=== PATIENT | female | born 1985 | race Two or more races ===

== ENCOUNTER 2017-08-10 14:27 | Emergency (ER) | payer MEDICAID ==
--- NOTE | 2017-08-10 15:03 | EDPHY ---
H & P Time Seen by Provider: 08/10/17 14:58 HPI/ROS: Chief complaint. Sore throat, cough HPI. 32-year-old female sore throat, fever, cough, body aches for 1 day. Exposed to sick contacts. Cough is nonproductive. Not short of breath. History of pneumonia. No abdominal pain or vomiting or diarrhea. No rash. ROS Constitutional. Fever Eyes. no problems with vision ENT. Sore throat Cardiovascular. no chest pain Respiratory. Cough Abdominal. no abdominal pain, no nausea/vomiting, no diarrhea . no problems urinating MS. Body aches Skin. no rash Lymph. no swollen glands Neuro. no headache, no dizziness, no difficulty walking or with speech Past Medical/Surgical History: Appendectomy, cholecystectomy, schizoaffective disorder, PTSD Social History: Single, daily smoker, no alcohol Smoking Status: Current every day smoker Physical Exam: General Appearance: Alert well-developed female mild distress vital signs significant for heart rate of 117 and temp 37.1 degrees Eyes: Pupils equal and round no pallor or injection. ENT, tympanic membranes are normal. Pharynx injected with exudate. No evidence of peritonsillar abscess Respiratory: No retractions. Mild inspiratory expiratory rhonchi Cardiovascular: Regular rate and rhythm. Gastrointestinal: Abdomen is soft and nontender, no masses, bowel sounds normal. Neurological: Awake and alert, sensory and motor exams grossly normal. Skin: Warm and dry, no rashes. Musculoskeletal: Neck is supple nontender. Extremities symmetrical, full range of motion. Psychiatric: Patient is oriented X 3, there is no agitation. Constitutional: Initial Vital Signs Temperature (C) 37.1 C 08/10/17 14:35 Heart Rate 117 H 08/10/17 14:35 Respiratory Rate 20 08/10/17 14:35 Blood Pressure 123/68 H 08/10/17 14:35 O2 Sat (%) 93 08/10/17 14:35 O2 Delivery Mode Room Air Allergies/Adverse Reactions: hydromorphone [From Dilaudid] Allergy (Verified 08/10/17 14:35) promethazine [From Phenergan] Allergy (Verified 08/10/17 14:35) Home Medications: Medication Instructions Recorded Penicillin V Potassium [Penicillin 500 mg PO BID #14 tab 08/10/17 VK] Tylenol Extra Strength 08/10/17 Medical Decision Making Procedures: Strep screen. Ibuprofen in the emergency department ED Course/Re-evaluation: Strep screen is positive Oral penicillin and Decadron in the emergency department Re-evaluation 4:05 p.m.. Patient and I discussed imaging and lab results. We discussed treatment plan including criteria for return and importance of follow- up and further evaluation. She expresses understanding and agreement Differential Diagnosis: I considered strep pharyngitis, peritonsillar abscess, pneumonia, influenza - Data Points Laboratory Results: 08/10/17 14:35 Group A Strep Screen POSITIVE H (NEGATIVE) Medications Given: Discontinued Medications Ibuprofen (Motrin) 600 mg PO EDNOW ONE Stop: 08/10/17 15:11 Last Admin: 08/10/17 15:19 Dose: 600 mg Departure - Departure Disposition: Home, Routine, Self-Care Clinical Impression: Strep pharyngitis Condition: Good Instructions: Strep Throat (ED) Additional Instructions: Drink plenty of fluids and stay hydrated. Tylenol 1000 mg every 4-6 hours, ibuprofen 800 mg every 6 hr as needed for achiness and fever. Penicillin as antibiotic. Return for worsening symptoms. Recheck in 2 days if not improved Referrals: NONE *PRIMARY CARE P,. [Primary Care Provider] - As per Instructions [facility] [Outside] - 2-3 days, if not improved Prescriptions: Penicillin V Potassium [Penicillin VK] 500 mg PO BID #14 tab
[2017-08-10] MEDS ORDERED: IBUPROFEN 600 MG TAB PO ONE (15:10)
[2017-08-10] MEDS ORDERED: PENICILLIN VK 500 MG TAB PO ONE (15:58)
[2017-08-10] MEDS ORDERED: DEXAMETHASONE 4 MG TAB PO ONE (15:59)
[2017-08-10 16:11] VITALS: BP 128/74
== END 2017-08-10 16:12 | disposition home or self-care (01) ==
DX: J02.0 Streptococcal pharyngitis (principal); F17.200 Nicotine dependence, unspecified, uncomplicated